=== PATIENT | female | born 1980 | race Two or more races ===

== ENCOUNTER → 2022-09-14 | Day surgery (SDC) | payer OTHER | LOC: JRADIR 10:52 | PROVIDERS: ATTEND Obstetrics & Gynecology ==

== ENCOUNTER 2022-12-15 09:40 | Emergency (ER) | payer OTHER ==
[2022-12-15 09:46] VITALS: BP 102/70; PULSE 80; RESP 18; TEMP 97.7; BMI 24.5
== END 2022-12-15 10:24 | disposition home or self-care (01) ==
LOC: JER 09:40
DX: Z30.432 Encounter for removal of intrauterine contraceptive device (principal)
CPT/HCPCS: 99282-25

== ENCOUNTER 2023-02-14 03:58 | Day surgery (SDC) | payer OTHER ==
[2023-02-12 15:57] VITALS: BMI 24.5
[~2023-02-14 03:58] MED LIST: ceFAZolin SODIUM 1 GM VIAL IVPB ONE
[2023-02-14] MEDS ORDERED: PHENAZOPYRIDINE HCL 100 MG TABLET (FP) PO ONE ×2 (06:00→06:50)
[2023-02-14] MEDS ORDERED: GABAPENTIN 300 MG CAPSULE PO ONE ×2 (06:00→06:50)
[2023-02-14] MEDS ORDERED: GABAPENTIN 300 MG CAPSULE ONE (06:29)
[2023-02-14] MEDS ORDERED: ceFAZolin SODIUM 1 GM VIAL ONE (06:30)
[2023-02-14] MEDS ORDERED: PHENAZOPYRIDINE HCL 100 MG TABLET (FP) ONE (06:30)
[2023-02-14] MEDS ORDERED: ACETAMINOPHEN INJECTION 100 ML IVPB ONE (06:30)
[2023-02-14] MEDS ORDERED: KETAMINE HCL 500 MG/10 ML VIAL ONE (06:52)
[2023-02-14] MEDS ORDERED: PROPOFOL 40 ML ONE (06:52)
[2023-02-14] MEDS ORDERED: SUCCINYLCHOLINE CHLORIDE 200 MG/10 ML SYRINGE ONE (06:53)
[2023-02-14] MEDS ORDERED: ROCURONIUM BROMIDE 50 MG/5 ML SYRINGE ONE (06:53)
[2023-02-14] MEDS ORDERED: MIDAZOLAM HCL 2 MG/2 ML SINGLE DOSE VIAL ONE (06:53)
[2023-02-14] MEDS ORDERED: TRANEXAMIC ACID 1000 MG/10 ML VIAL ONE (07:57)
[2023-02-14] MEDS ORDERED: CEFAZOLIN 2 GM in DEXTROSE 5%-WATER 100 ML IVPB ONE (08:00)
[2023-02-14] MEDS ORDERED: TRANEXAMIC ACID 1000 MG/10 ML VIAL IVPUSH ONE (08:00)
[2023-02-14] MEDS ORDERED: ceFAZolin SODIUM 1 GM VIAL IVPB ONE (08:10)
[2023-02-14] MEDS ORDERED: NEOSTIGMINE METHYLSULFATE 0.5 MG/1 ML - 10 ML MDV ONE (08:31)
[2023-02-14] MEDS ORDERED: ACETAMINOPHEN 1000 MG/100 ML BAG IVPB ONE (09:00)
[2023-02-14] MEDS ORDERED: BISACODYL 5 MG TABLET.DR (FP) PO PRN (10:09)
[2023-02-14] MEDS ORDERED: DOCUSATE SODIUM 100 MG CAPSULE (FP) PO PRN (10:09)
[2023-02-14] MEDS ORDERED: oxyCODONE HCL 5 MG TABLET PO PRN ×2 (10:09)
[2023-02-14] MEDS ORDERED: ONDANSETRON 4 MG/2 ML VIAL IVPUSH PRN (10:09)
[2023-02-14] MEDS ORDERED: SODIUM CHLORIDE 1,000 ML IV SCH (10:15)
[2023-02-14] MEDS: CEFAZOLIN 1 GM in DEXTROSE 5%-WATER - 50 ML IVPB SCH ×2 (17:01→17:17)
[2023-02-14] MEDS: ACETAMINOPHEN 325 MG TABLET (FP) PO SCH ×2 (17:02→21:53)
[2023-02-14 18:00] LABS: HEMATOCRIT 27.1 % (32.4-45.2); HEMOGLOBIN 8.8 GM/dL (10.7-15.3); MCH 24.1 pg (25.7-33.7); MCHC 32.6 g/dl (32.0-36.0); MEAN CELL VOLUME 73.9 fl (80-96); MEAN PLT VOLUME 8.4 fl (7.5-11.1); PLATELET COUNT 255 10^3/uL (134-434); RBC 3.67 M/mm3 (3.60-5.2); WHITE BLOOD COUNT 5.4 K/mm3 (4.0-10.0)
[2023-02-14 18:17] LABS: POTASSIUM 4.4 mmol/L (3.5-5.1)
[2023-02-14 18:19] LABS: CALCIUM 8.2 mg/dL (8.5-10.1)
[2023-02-14 18:20] LABS: BLOOD UREA NITROGEN 6.1 mg/dL (7-18)
[2023-02-14 18:23] LABS: CREATININE 0.8 mg/dL (0.55-1.3)
[2023-02-14] MEDS: IBUPROFEN 800 MG/8 ML IJ IVPB SCH (18:27)
[2023-02-14] MEDS: SIMETHICONE 80 MG TAB.CHEW (FP) PO PRN (21:53)
[2023-02-15] MEDS: CEFAZOLIN 1 GM in DEXTROSE 5%-WATER - 50 ML IVPB SCH ×2 (01:28→10:35)
[2023-02-15] MEDS: IBUPROFEN 800 MG/8 ML IJ IVPB SCH ×2 (01:58→10:00)
[2023-02-15] MEDS: SIMETHICONE 80 MG TAB.CHEW (FP) PO PRN ×2 (01:59→08:26)
[2023-02-15] MEDS: ACETAMINOPHEN 325 MG TABLET (FP) PO SCH ×2 (03:58→10:00)
[2023-02-15 06:13] LABS: HEMATOCRIT 24.3 % (32.4-45.2); HEMOGLOBIN 8.2 GM/dL (10.7-15.3); MCH 24.4 pg (25.7-33.7); MCHC 33.6 g/dl (32.0-36.0); MEAN CELL VOLUME 72.7 fl (80-96); MEAN PLT VOLUME 9.2 fl (7.5-11.1); PLATELET COUNT 250 10^3/uL (134-434); RBC 3.35 M/mm3 (3.60-5.2); RDW 18.9 % (11.6-15.6); WHITE BLOOD COUNT 4.7 K/mm3 (4.0-10.0)
[2023-02-15 06:34] LABS: POTASSIUM 3.8 mmol/L (3.5-5.1)
[2023-02-15 06:36] LABS: BLOOD UREA NITROGEN 4.2 mg/dL (7-18)
[2023-02-15 06:39] LABS: CREATININE 0.6 mg/dL (0.55-1.3)
[2023-02-15] MEDS ORDERED: ENOXAPARIN NA (PORCINE) 40 MG/0.4 ML DISP.SYRIN SQ SCH (10:00)
[2023-02-15] MEDS ORDERED: ACETAMINOPHEN 500 MG TABLET (FP) PO SCH (11:22)
[2023-02-15] MEDS ORDERED: ACETAMINOPHEN 325 MG TABLET (FP) PO ONE ×2 (11:40→12:15)
[2023-02-15 12:18] VITALS: BP 108/54; PULSE 96; RESP 17; TEMP 97.5
== END 2023-02-15 13:55 | disposition home or self-care (01) ==
LOC: JASUSAT 03:58 → J3W 12:41 → JASUSAT 02-15 13:55
PROVIDERS: ATTEND Obstetrics & Gynecology
PROC: 0UB14ZZ Excision of Left Ovary, Percutaneous Endoscopic Approach (ICD-10-PCS; 2023-02-14)
PROC: 0UT94ZZ Resection of Uterus, Percutaneous Endoscopic Approach (ICD-10-PCS; principal; 2023-02-14 07:30)
PROC: 0UB74ZZ Excision of Bilateral Fallopian Tubes, Percutaneous Endoscopic Approach (ICD-10-PCS; 2023-02-14 07:30)
PROC: 8E0W4CZ Robotic Assisted Procedure of Trunk Region, Percutaneous Endoscopic Approach (ICD-10-PCS; 2023-02-14 07:30)
DX: D25.9 Leiomyoma of uterus, unspecified (principal); N80.03 Adenomyosis of the uterus; N72 Inflammatory disease of cervix uteri; N83.8 Other noninflammatory disorders of ovary, fallopian tube and broad ligament; N83.292 Other ovarian cyst, left side
CPT/HCPCS: 58571; 58662; S2900; 36415; 80048; 81025; 85027; 86850; 86900; 86901; 88302-TC; 88305-TC; 88307-TC; 94010; 94760